=== PATIENT | male | born 1960 | race Caucasian/White ===

== ENCOUNTER 2017-08-07 09:50 | Inpatient (IN) | payer OTHER ==
[2017-08-07] VITALS (23 sets, daily range): BP systolic 127–160; BP diastolic 72–97; PULSE 61–94; RESP 7–19; Ht 177.8 cm; Wt 89.7 kg
[~2017-08-07] VITALS: Ht 177.8 cm; Wt 89.7 kg
[~2017-08-07 09:50] MED LIST: ONDANSETRON 4 MG INJ ONE
[2017-08-07] MEDS ORDERED: ASPI-664 PO (10:23)
[2017-08-07] MEDS ORDERED: ATOR80TA75 PO (10:23)
[2017-08-07] MEDS ORDERED: CEFAZOLIN 2 GM/50 ML (PMX) 50 ML IVPB SCH (11:00)
[2017-08-07] MEDS ORDERED: LACTATED RINGER'S 1,000 ML IV* SCH (11:00)
[2017-08-07] MEDS ORDERED: POLYMYXIN/BACITRACIN 1L IRRIG ONE (11:35)
[2017-08-07] MEDS ORDERED: BUPIVACAINE 0.5%/EPI (SDV) 30 ML INJ ONE (11:35)
[2017-08-07] MEDS ORDERED: SURGIFOAM POWDER 1 GM KIT ONE (11:35)
[2017-08-07] MEDS ORDERED: THROMBIN 5000 UNIT VIAL ONE (11:35)
[2017-08-07] MEDS ORDERED: GELATIN SIZE 100 SPONGE ONE (11:35)
--- NOTE | 2017-08-07 11:52 | HPN ---
Date/Time of Note Date/Time of Note DATE: 08/07/17 TIME: 11:52 Interval H&P Admission Note Pt. seen H&P reviewed: No system changes YVON WEINSTEIN MD Aug 07, 2017 11:52
[2017-08-07] MEDS ORDERED: MEPERIDINE 100 MG INJ ONE (11:55)
[2017-08-07] MEDS ORDERED: ROCURONIUM 50 MG INJ ONE ×3 (11:55→14:02)
[2017-08-07] MEDS ORDERED: PROPOFOL 20 ML ONE (11:55)
[2017-08-07] MEDS ORDERED: GLYCOPYRROLATE 0.4 MG INJ ONE ×3 (11:55→14:02)
[2017-08-07] MEDS ORDERED: SUCCINYLCHOLINE CHLORIDE 100 MG/5 ML SYG IV ONE (11:55)
[2017-08-07] MEDS ORDERED: NEOSTIGMINE 3 MG/3 ML SYRINGE ONE ×2 (11:55→14:02)
[2017-08-07] MEDS ORDERED: LIDOCAINE 2% (SDV) 5 ML INJ ONE (11:55)
[2017-08-07] MEDS ORDERED: NALOXONE (0.4 MG/ML) INJ IV PRN (12:00)
[2017-08-07] MEDS ORDERED: ACETAMINOPHEN 325 MG TAB PO PRN (12:00)
[2017-08-07] MEDS ORDERED: DIPHENHYDRAMINE 25 MG CAP PO PRN (12:00)
[2017-08-07] MEDS ORDERED: DIPHENHYDRAMINE 50 MG INJ IV PRN ×2 (12:00→15:00)
[2017-08-07] MEDS ORDERED: CEPASTAT LOZENGE MT PRN (12:00)
[2017-08-07] MEDS ORDERED: ZOLPIDEM 5 MG TAB PO PRN (12:00)
[2017-08-07] MEDS ORDERED: AL HYDROX/MG HYDROX/SIMETH 30 ML CUP PO PRN (12:00)
[2017-08-07] MEDS ORDERED: LORAZEPAM 2 MG INJ IV PRN (12:00)
[2017-08-07] MEDS ORDERED: BISACODYL 10 MG SUPP PR PRN (12:00)
[2017-08-07] MEDS ORDERED: HYDROmorphONE 0.5 MG/0.5 ML SYG IV PRN (12:00)
[2017-08-07] MEDS ORDERED: hydrALAzine 20 MG INJ ONE (12:42)
[2017-08-07] MEDS: CEFAZOLIN 1 GM/50 ML (PMX) 50 ML IVPB SCH ×2 (13:15→20:16)
--- NOTE | 2017-08-07 14:13 | RADRPT ---
PROCEDURE: Intraoperative imaging of the cervical spine with fluoroscopy. CLINICAL INDICATION: Neck pain. Intraoperative. TECHNIQUE: 9 images of the cervical spine were obtained in the operating room with an image intens ifier. No radiologist was in attendance. Fluoroscopy time is 16.5 seconds. COMPARISON: No prior study is available for comparison. FINDINGS: Surgical instruments are noted overlying the cervical spine. Images demonstrate fusion of the C5-6 level with an anterior plate, screws, and an intervertebral ca ge. IMPRESSION: 1. Intraoperative imaging of the cervical spine. 2. Anterior fusion at C5-6. RPTAT: QQ .Mando Mendez MD, MD Date Time Electronically viewed and signed by .Mando Mendez MD, on 08/07/2017 14:12 .R/
--- NOTE | 2017-08-07 14:19 | SIPON ---
Date/Time of Note Date/Time of Note DATE: 08/07/17 TIME: 14:18 Operative Report Preoperative Diagnosis C5-6 cervical disc disease and stenosis Postoperative Diagnosis C5-6 cervical disc disease and stenosis Operation/Procedure Performed C5-6 cervical fusion Surgeon see signature line physical therapist assistant martha Anesthesia: general Estimated blood loss: 10 - 50 ml's Transfusion Required none Specimen C5-6 disc Grafts/Implants Cervical plate and cage Complications none YVON WEINSTEIN MD Aug 07, 2017 14:19
[2017-08-07] MEDS: HYDROmorphONE 0.2 MG/ML PCA IV SCH (14:36)
[2017-08-07] MEDS ORDERED: OXYCODONE/ACETAMINOPHEN (5/325) TAB PO PRN ×2 (15:00)
[2017-08-07] MEDS ORDERED: hydrALAzine 20 MG INJ IV PRN (15:00)
[2017-08-07] MEDS ORDERED: FENTAnyl 50 MCG/ML VIAL IV PRN ×3 (15:00)
[2017-08-07] MEDS ORDERED: MEPERIDINE 25 MG INJ IV PRN (15:00)
[2017-08-07] MEDS ORDERED: ONDANSETRON 4 MG INJ IV PRN (15:00)
[2017-08-07] MEDS ORDERED: EPHEDrine SULFATE 50 MG/5 ML SYG IV PRN (15:00)
[2017-08-07] MEDS ORDERED: HYDROmorphONE (0.2 MG/ML) 10ML SYG IV PRN ×3 (15:00)
[2017-08-07] MEDS ORDERED: MIDAZOLAM 1 MG/ML 2 ML INJ IV PRN (15:00)
[2017-08-07] MEDS ORDERED: LABETALOL HCL 20MG INJ IV PRN (15:00)
[2017-08-07] MEDS ORDERED: METOCLOPRAMIDE 10 MG INJ IV PRN (15:00)
[2017-08-07] MEDS: D5W-0.45 NACL + KCL 20 MEQ 1,000 ML IV SCH ×2 (15:40→23:57)
[2017-08-07] MEDS: CARISOPRODOL 350 MG TAB PO PRN ×2 (16:32→23:57)
[2017-08-07] MEDS: ONDANSETRON 4 MG INJ IV PRN ×2 (16:33→21:47)
--- NOTE | 2017-08-07 18:41 | OPR ---
DATE OF OPERATION: 08/07/2017 PREOPERATIVE DIAGNOSES: C5-C6 cervical disk disease and stenosis with radiculopathy. POSTOPERATIVE DIAGNOSIS: C5-6 cervical disk disease and stenosis with radiculopathy. OPERATION PERFORMED: 1. Anterior cervical diskectomy at C5-C6. 2. Anterior C5-C6. 3. Placement of intervertebral biomechanical device at C5-C6. 4. Anterior hardware placement at C5-C6. 5. Use of allograft. 6. Use of C-arm fluoroscopy with interpretation without radiologist present. 7. Use of operative microscope. 8. Intraoperative neuromonitoring (1 hour 15 minutes). IMPLANTS: 1. BK cervical plate 12 mm with 14 mm screws. 2. Neurostructure Cavetto Phusion 5 x 16 x 14.5 mm diagonal cage. 3. Fibergraft matrix. PRIMARY SURGEON: Samuel Sanchez MD ENDLESS BELT FINISHER: Inez Bishop MD NEED FOR BLANKET WASHER: hair or beauty salon assistant was required in order to retract neurovascular [place] ents. FINDINGS: Neuromonitoring throughout the case revealed left C5 amplitude down 40%, right C5 and rig ht C6 amplitude down 30%. At the end of the case, nerve signals returned to normal. The patient go d posterior osteophytes resulting stenosis C5-C6 level. ESTIMATED BLOOD LOSS: Less than 30 mL. DRAINS: None. SPECIMENS: C5-C6 disk. COMPLICATIONS OF PROCEDURES: None. ANESTHESIOLOGIST: Dr. Hooks. TYPE OF ANESTHESIA: General. INDICATIONS FOR PROCEDURE: This is a 57-year-old gentleman with [facility] disk disease and stenosis at C5-C6. He failed nonoperative measures, therefore I recommended he undergo the above procedure. Preoperatively discussed the risks, benefits, and alternatives. He understood and wished to proceed. DESCRIPTION OF PROCEDURE IN DETAIL: The patient was identified in the preoperative holding area, [facility], taken to the operating room, where he was successfully placed under general an esthesia. Neuromonitoring leads were placed, sequential compressive devices were applied. Neuromon itoring was utilized during the procedure for 1 hour 15 minutes to include SSEP, MEP, and EMG. This was performed by [employer]. Start time was 12:45 p.m., closure time was 2:00 p.m. Patient was placed on the operating room table in supine position. All bony prominences were well padded. Towel roll was placed behind the neck and between the scapular blades and the arms were tucked at th e side and neck was extended. The neck was then prepped and draped in usual sterile fashion. A lef t-sided anterior approach to the neck was made. The skin was incised. The platysma was incised in line with the skin incision. I then identified an interval between the sternocleidomastoid and stra p muscles and identified the anterior spine. I then placed a bent spinal needle into what was felt to be the C5-C6 level and a lateral film was obtained to confirm the correct levels. Once this was confirmed, I subperiosteally dissected the longus colli musculature. I then placed self-retaining r etractors. Anesthesiologist deflated and reinflated the cuff. Microscope was brought in. Alexus my was made followed by radical diskectomy using curettes, Kerrison punches and pituitary rongeurs. The patient had large posterior osteophytes, and I used a high-speed bur to thin down the posterior osteophytes. I then used a Kerrison punch to decompress the spinal cord and neural foramina bilate rally at C5-C6. Once this was done, I prepared the endplates and placed various trials. I chose th e appropriate graft height. I then took the metallic cage within which I placed allograft and I imp acted the intervertebral biomechanical device into the C5-C6 level to complete the anterior fusion a t C5-C6. I then took the anterior plate and placed this at C5-C6 with 14 mm screws, which I locked down. Once this was done, I took final AP and lateral images and I was happy with placement of the hardware and alignment of the spine. I then irrigated the wound copiously. Hemostasis was achieved with Surgifoam. The wound was dry and therefore, I elected not to place a drain. I irrigated the wound once again removed the retractors and closed the wound in layers. Microscope was taken off th e field. I closed the platysma with a 2-0 running Vicryl stitch. I then closed subcutaneous tissue with a 3-0 Vicryl stitch. Dermabond was then applied. The patient was then awakened from anesthes ia and taken to recovery room in stable condition. Lap, sponge, and instrument counts were correct x2. There were no apparent complications during the procedure. The patient will be admitted to the orthopedic [facility] for routine postoperative care to include pain c ontrol, neurovascular checks, antibiotics, and physical therapy. Dictated By: SAMUEL SANCHEZ MD BB/RENÉE Conf#: [id number] DID#: [id number] CC: SAMUEL SANCHEZ MD; INEZ BISHOP MD;*EndCC*
[2017-08-07] MEDS: DOCUSATE SODIUM 100 MG CAP PO SCH (20:16)
[2017-08-07] MEDS ORDERED: ATORVASTATIN 80 MG TAB PO SCH (21:00)
--- NOTE | 2017-08-07 22:19 | CONS ---
DATE OF ADMISSION: 08/07/2017 DATE OF CONSULTATION: 08/07/2017 POSTOPERATIVE MEDICAL CONSULTATIVE NOTE Dear Dr. Weinstein, Thank you very much for allowing me to evaluate this 57-year-old male who just underwent anterior ce rvical spine surgery. HISTORICAL EVENTS: As you well know, this patient was seen by you in June when he complained of constant neck pain associated with cramping in his right shoulder. He also noted some clicking and popping. Attempted physical therapy was not beneficial, and acupuncture as well did not provide any benefit. Because of this, he elected to proceed with surgery. Postoperatively, he is comfortable except for modest neck pain without cough, wheezing, shortness of breath, nausea, vomiting, abdomina l or chest pain. A Dubon catheter has not been placed and thus far, he has not had the urge to void . PAST MEDICAL HISTORY: Includes: 1. Right hip and right knee surgery as well as scoping of his right hip. 2. History of hyperlipidemia. 3. Double hernia surgery, appendectomy and carpal tunnel surgery. SOCIAL HISTORY: He is a nonsmoker. He socially drinks. ALLERGIES: NEGATIVE. FAMILY HISTORY: To be reviewed later. PHYSICAL EXAMINATION: GENERAL: Tice male in no acute distress. VITAL SIGNS: BP 128/80, pulse 70, respirations of 20. He was afebrile. EYES: Extraocular muscles were full. NOSE, MOUTH, AND THROAT: Normal. NECK: Not examined because of the soft collar in place. LUNGS: Clear. HEART: Rhythm regular. No murmur. No third or fourth sound. ABDOMEN: Nontender. Liver and spleen were not palpable. No mass or tenderness were noted. EXTREMITIES: No edema. Calves nontender. Pulses 2+. NEUROLOGIC: No lateralizing motor weakness. IMPRESSION: 1. Stable postoperative cervical spine surgery. 2. History of hyperlipidemia. To resume his statin. 3. If he is unable to void, an in and out Dubon catheter will be required. 4. Will follow daily for signs and symptoms of thromboembolic disease. Dictated By: GRACE MICHELLE/RENÉE Conf#: [id number] DID#: [id number] CC: YVON WEINSTEIN MD;*EndCC*
[2017-08-08] VITALS: BP 126/71; PULSE 70; RESP 20
[2017-08-08 02:00] VITALS: BP 120/69; PULSE 72; RESP 20
[2017-08-08] MEDS: CEFAZOLIN 1 GM/50 ML (PMX) 50 ML IVPB SCH (04:37)
[2017-08-08 05:17] LABS: BASOPHILS % 0.1 % (0.0-2.0); HEMATOCRIT 44.4 % (42.0-52.0); HEMOGLOBIN 14.8 g/dl (14.0-18.0); LYMPHOCYTES % 5.9 % (15.0-51.0); MEAN CORPUSCULAR HEMOGLOBIN 31.4 pg (29.0-33.0); MEAN CORPUSCULAR HGB CONC 33.3 g/dl (32.0-37.0); MEAN CORPUSCULAR VOLUME 94.3 fl (82.0-101.0); MEAN PLATELET VOLUME 9.6 fl (7.4-10.4); MONOCYTE # 1.2 10^3/ul (0.3-0.9); MONOCYTES % 7.2 % (0.0-11.0); NEUTROPHIL # 14.1 10^3/ul (1.6-7.5); NEUTROPHILS % 86.4 % (39.0-77.0); PLATELET COUNT 236 10^3/UL (140-415); RED BLOOD COUNT 4.71 10^6/ul (4.70-6.10); RED CELL DISTRIBUTION WIDTH 12.5 % (11.5-14.5); WHITE BLOOD COUNT 16.3 10^3/ul (4.8-10.8)
[2017-08-08 05:39] LABS: CALCIUM 8.5 mg/dl (8.4-10.2); CREATININE 1.01 mg/dl (0.61-1.24); MAGNESIUM 2.2 mg/dl (1.7-2.5); POTASSIUM 4.2 mmol/L (3.5-5.1)
[2017-08-08] MEDS: HYDROmorphONE 0.2 MG/ML PCA IV SCH (05:40)
--- NOTE | 2017-08-08 07:05 | DS ---
Date/Time of Note Date/Time of Note DATE: 08/08/17 TIME: 07:04 Discharge Summary Admission/Discharge Info Admit Date/Time Aug 07, 2017 at 09:50 Discharge Date/Time August 08 Discharge Diagnosis Status post cervical fusion Patient Condition: Good Procedures Cervical fusion Hx of Present Illness Neck and arm pain Hospital Course Patient was admitted to the [facility]opedic [facility] after undergoing the above procedure. His postoperative course was uncomplicated. By postoperative day 1 he was deemed stable for discharge with follow-up arranged with the undersigned Home Meds Reported Medications Aspirin (Low Dose Aspirin) 81 Mg Tablet.dr, 81 MG PO DAILY, #30 TAB 08/07/17 Atorvastatin* (Atorvastatin*) 80 Mg Tablet, 80 MG PO QHS, #30 TAB 08/07/17 Primary Care Provider Not On Staff Doctor Pending Labs Laboratory Tests Test 08/08/17 04:30 White Blood Count 16.310^3/ul (4.8-10.8) Red Blood Count 4.7110^6/ul (4.70-6.10) Hemoglobin 14.8g/dl (14.0-18.0) Hematocrit 44.4% (42.0-52.0) Mean Corpuscular Volume 94.3fl (82.0-101.0) Mean Corpuscular Hemoglobin 31.4pg (29.0-33.0) Mean Corpuscular Hemoglobin Concent 33.3g/dl (32.0-37.0) Red Cell Distribution Width 12.5% (11.5-14.5) Platelet Count 30504^3/UL (140-415) Mean Platelet Volume 9.6fl (7.4-10.4) Neutrophils % 86.4% (39.0-77.0) Lymphocytes % 5.9% (15.0-51.0) Monocytes % 7.2% (0.0-11.0) Eosinophils % 0.0% (0.0-7.0) Basophils % 0.1% (0.0-2.0) Nucleated Red Blood Cells % 0.0/100WBC (0.0-0.0) Neutrophils # 14.110^3/ul (1.6-7.5) Lymphocytes # 1.010^3/ul (0.8-2.9) Monocytes # 1.210^3/ul (0.3-0.9) Eosinophils # 0.010^3/ul (0.0-0.5) Basophils # 0.010^3/ul (0.0-0.1) Nucleated Red Blood Cells # 0.010^3/ul (0.0-0.0) Sodium Level 138mmol/L (135-144) Potassium Level 4.2mmol/L (3.5-5.1) Chloride Level 103mmol/L (97-110) Carbon Dioxide Level 30mmol/L (21-31) Anion Gap 9 (8-16) Blood Urea Nitrogen 14mg/dl (7-20) Creatinine 1.01mg/dl (0.61-1.24) Glucose Level 121mg/dl (70-220) Calcium Level 8.5mg/dl (8.4-10.2) Magnesium Level 2.2mg/dl (1.7-2.5) YVON WEINSTEIN MD Aug 08, 2017 07:05
[2017-08-08] MEDS: D5W-0.45 NACL + KCL 20 MEQ 1,000 ML IV SCH (07:31)
[2017-08-08] MEDS: DOCUSATE SODIUM 100 MG CAP PO SCH (08:10)
[2017-08-08 08:20] VITALS: BP 127/78; RESP 20
--- NOTE | 2017-08-08 08:29 | CONS ---
Date/Time of Note Date/Time of Note DATE: 08/08/17 TIME: 08:27 Assessment/Plan Assessment/Plan Additional Assessment/Plan 1. Doing well post op cx spine surgery 2. Hyperlipidemia, startin resumed 3. Elev WBC, rev op record, did not get decadron, and no peck catheter was placed, and has has no path respir sxs with nl exam will need follow up. Consultation Date/Type/Reason Admit Date/Time Aug 07, 2017 at 09:50 Initial Consult Date Detailed Summary Respiratory: No shortness of breath Cardiovascular: No chest pain Gastrointestinal: no complaints Genitourinary: no complaints Musculoskeletal: back pain, neck pain (moderate) Exam/Review of Systems Vital Signs Vitals Vital Signs Date Time Temp Pulse Resp B/P Pulse Ox O2 Delivery O2 Flow Rate FiO2 08/08/17 08:20 98.2 74 20 127/78 96 08/08/17 02:00 Nasal Cannula 2.0 Intake and Output 08/07/17 08/07/17 08/08/17 15:00 23:00 07:00 Intake Total 400 ml 1400 ml Output Total 10 ml Balance 390 ml 1400 ml Exam Neck: No jvd Respiratory: clear to auscultation Gastrointestinal: soft Extremities: No edema (and no calf tend) Results Result Diagram: 08/08/17 0430 08/08/17 0430 Results 24 hrs Laboratory Tests Test 08/08/17 04:30 White Blood Count 16.3 H Red Blood Count 4.71 Hemoglobin 14.8 Hematocrit 44.4 Mean Corpuscular Volume 94.3 Mean Corpuscular Hemoglobin 31.4 Mean Corpuscular Hemoglobin Concent 33.3 Red Cell Distribution Width 12.5 Platelet Count 236 Mean Platelet Volume 9.6 Neutrophils % 86.4 H Lymphocytes % 5.9 L Monocytes % 7.2 Eosinophils % 0.0 Basophils % 0.1 Nucleated Red Blood Cells % 0.0 Neutrophils # 14.1 H Lymphocytes # 1.0 Monocytes # 1.2 H Eosinophils # 0.0 Basophils # 0.0 Nucleated Red Blood Cells # 0.0 Sodium Level 138 Potassium Level 4.2 Chloride Level 103 Carbon Dioxide Level 30 Anion Gap 9 Blood Urea Nitrogen 14 Creatinine 1.01 Glucose Level 121 Calcium Level 8.5 Magnesium Level 2.2 Medications Medications Current Medications Lactated Ringer's 1,000 ml @ 20 mls/hr Q24H IV* ; Start 08/07/17 at 11:00; Stop 08/09/17 at 12:59 Potassium Chloride/Dextrose/ Sod Cl (D5-1/2ns + KCl 20 Meq) 1,000 ml @ 100 mls/ hr Q10H IV Last administered on 08/07/17 23:57; Admin Dose 100 MLS/HR; Start 08/07/17 at 11:52 Tramadol HCl (Ultram) 50 mg Q4H PRN PO PAIN LEVEL 1-5; Start 08/08/17 at 10:00 Hydromorphone HCl (Dilaudid) 0.2 mg Q1H PRN IV BREAKTHROUGH PAIN; Start at 12:00 Zolpidem Tartrate (Ambien) 5 mg HS PRN PO INSOMNIA; Start 08/07/17 at 12:00 Ondansetron HCl (Zofran Inj) 4 mg Q6H PRN IV NAUSEA AND/OR VOMITING Last administered on 08/07/17 21:47; Admin Dose 4 MG; Start 08/07/17 at 12:00 Bisacodyl (Dulcolax Supp) 10 mg DAILY PRN [place] CONSTIPATION; Start 08/07/17 at 12:00 Docusate Sodium (Colace) 100 mg BID PO Last administered on 08/08/17 08:10; Admin Dose 100 MG; Start 08/07/17 at 21:00 Famotidine (Pepcid Iv) 20 mg BID IV Last administered on 08/08/17 08:10; Admin Dose 20 MG; Start 08/08/17 at 09:00 Al Hydrox/Mg Hydrox/Simethicone (Mag-Al Plus) 15 ml Q6H PRN PO CONSTIPATION/ DYSPEPSIA; Start 08/07/17 at 12:00 Acetaminophen (Tylenol Tab) 650 mg Q4H PRN PO HEARN OR TEMP GREATER THAN 101.3F; Start 08/07/17 at 12:00 Lorazepam (Ativan) 1 mg Q6H PRN IV ANXIETY; Start 08/07/17 at 12:00 Carisoprodol (Soma) 350 mg TID PRN PO MUSCLE SPASMS Last administered on 23:57; Admin Dose 350 MG; Start 08/07/17 at 12:00 Phenol (Cepastat Lozenge) 1 lozenge PRN PRN MT SORE THROAT Last administered on 08/07/17 16:33; Admin Dose 1 LOZENGE; Start 08/07/17 at 12:00 Diphenhydramine HCl (Benadryl) 25 mg Q6H PRN PO ITCHING; Start 08/07/17 at 12: 00 Diphenhydramine HCl (Benadryl) 25 mg Q6H PRN IV ITCHING; Start 08/07/17 at 12: 00 Naloxone HCl (Narcan) 0.2 mg Q2M PRN IV RR 8 BREATHS/MIN OR LESS; Start at 12:00 Hydromorphone HCl (Dilaudid WING COMMANDER) WING COMMANDER to be started in PACU Q4PCA IV Last administered on 08/08/17 05:40; Admin Dose 6 MG; Start 08/07/17 at 12:00; Stop 08/08/17 at 10:00 Miscellaneous Information 1. Hold WING COMMANDER at 1,000... WING COMMANDER IV ; Start 08/07/17 at 12 :00 Atorvastatin Calcium (Lipitor) 80 mg QHS PO Last administered on 08/07/17 20: 16; Admin Dose 80 MG; Start 08/07/17 at 21:00 GRACE YE MD Aug 08, 2017 08:29
[2017-08-08] MEDS ORDERED: FAMOTIDINE 20 MG INJ IV SCH (09:00)
[2017-08-08] MEDS: traMADol 50 MG TAB PO PRN ×2 (09:41→13:40)
[2017-08-08] MEDS: ONDANSETRON 4 MG INJ IV PRN (09:41)
[2017-08-08] MEDS ORDERED: traMADol 50 MG TAB PO PRN (10:00)
--- NOTE | 2017-08-08 11:00 | RADRPT ---
PROCEDURE: XR Chest. CLINICAL INDICATION: Elevated there may be see. Shortness of breath TECHNIQUE: Single portable view of the chest was obtained COMPARISON: No priors for comparison FINDINGS: The trachea is midline. The cardiac silhouette and pulmonary vascularity are within normal limits. T he lungs are clear. The costophrenic angles are sharp. IMPRESSION: 1. No evidence of acute cardiopulmonary disease. RPTAT: AAPP Physician Tiffanie Date Time Electronically viewed and signed by Carley Dorado Physician on 08/08/2017 11:00 JL/
[2017-08-08 11:50] LABS: BASOPHILS % 0.2 % (0.0-2.0); EOSINOPHILS % 0.1 % (0.0-7.0); HEMATOCRIT 46.7 % (42.0-52.0); HEMOGLOBIN 15.7 g/dl (14.0-18.0); LYMPHOCYTES # 0.7 10^3/ul (0.8-2.9); LYMPHOCYTES % 3.8 % (15.0-51.0); MEAN CORPUSCULAR HEMOGLOBIN 31.5 pg (29.0-33.0); MEAN CORPUSCULAR HGB CONC 33.6 g/dl (32.0-37.0); MEAN CORPUSCULAR VOLUME 93.6 fl (82.0-101.0); MEAN PLATELET VOLUME 9.4 fl (7.4-10.4); MONOCYTE # 1.2 10^3/ul (0.3-0.9); MONOCYTES % 6.7 % (0.0-11.0); NEUTROPHILS % 88.8 % (39.0-77.0); PLATELET COUNT 210 10^3/UL (140-415); RED BLOOD COUNT 4.99 10^6/ul (4.70-6.10); RED CELL DISTRIBUTION WIDTH 12.6 % (11.5-14.5)
[2017-08-08 12:49] LABS: ADD UMIC NO; UR ASCORBIC ACID NEGATIVE (NEGATIVE); UR BILIRUBIN (Dip) NEGATIVE (NEGATIVE); UR BLOOD (Dip) NEGATIVE (NEGATIVE); UR CLARITY CLEAR (CLEAR); UR COLOR YELLOW (YELLOW); UR GLUCOSE (Dip) NEGATIVE (NEGATIVE); UR KETONES (Dip) NEGATIVE (NEGATIVE); UR LEUKOCYTE ESTERASE (Dip) NEGATIVE Leu/ul (NEGATIVE); UR NITRITE (Dip) NEGATIVE (NEGATIVE); UR SPECIFIC GRAVITY (Dip) 1.019 (1.003-1.030); UR TOTAL PROTEIN (Dip) NEGATIVE (NEGATIVE); UR UROBILINOGEN (Dip) NEGATIVE (NEGATIVE)
[2017-08-08] MEDS: CARISOPRODOL 350 MG TAB PO PRN (14:18)
== END 2017-08-08 16:15 | disposition home or self-care (01) | DRG 473 ==
LOC: REC 09:50 → MS1 16:00
PROVIDERS: ADMIT Specialist; ATTEND Specialist
PROC: 0RB30ZZ Excision of Cervical Vertebral Disc, Open Approach (ICD-10-PCS; 2017-08-07)
PROC: 0RG10A0 Fusion of Cervical Vertebral Joint with Interbody Fusion Device, Anterior Approach, Anterior Column, Open Approach (ICD-10-PCS; principal; 2017-08-07 12:00)
DX: M50.122 Cervical disc disorder at C5-C6 level with radiculopathy (principal); M48.02 Spinal stenosis, cervical region; E78.5 Hyperlipidemia, unspecified
CPT/HCPCS: 71010; 72050; 80048; 81003; 83735; 85025; 86999; 87040; 87086; 97116; 97161; J0360; J0690; J1170; J2175; J2405; J2710; J2765; J3010; J3480; J7120